=== PATIENT | male | born 1985 | race Caucasian/White ===

== ENCOUNTER 2017-06-01 19:50 | Emergency (ER) | payer SELFPAY ==
[~2017-06-01] VITALS: Ht 177.8 cm; Wt 66.0 kg
[2017-06-01 19:53] VITALS: BP 133/84
== END 2017-06-01 22:37 | disposition left against medical advice (07) ==
LOC: ER 19:50
DX: R07.81 Pleurodynia (principal); Z53.21 Procedure and treatment not carried out due to patient leaving prior to being seen by health care provider